=== PATIENT | male | born 1995 | race Caucasian/White ===

== ENCOUNTER 2023-10-21 12:08 | Emergency (ER) | payer BC, SELFPAY ==
--- NOTE | ~2023-10-21 | XR_ITS ---
EXAMINATION: XR lumbar spine 2-3V DATE: 10/21/2023 12:57 INDICATION: Right-sided low back pain TECHNIQUE: Anteroposterior and lateral views of the lumbar spine, and cone-down lateral view of the l umbosacral junction were obtained. COMPARISON: Chest and rib radiographs dated 10/21/2023 FINDINGS: There are 6 nonrib-bearing lumbar segments. 12 paired rib bearing thoracic segments are seen on the c hest and right rib radiographs. Alignment is normal. Vertebral body and disc heights are normal. Sacr al arches are intact. Bilateral sacralized joints are unremarkable. IMPRESSION: 1. Normal variant 6 . Nonrib-bearing lumbar segments. Otherwise unremarkable lumbar spine radiographs with no acute osseous abnormality. Reviewed, dictated and finalized at location A. IMPRESSION: 1. Normal variant 6 . Nonrib-bearing lumbar segments. Otherwise unremarkable fei mbar spine radiographs with no acute osseous abnormality.
--- NOTE | ~2023-10-21 | XR_ITS ---
EXAMINATION: [id number] DATE: 10/21/2023 12:58 INDICATION: Hockey injury with right-sided low back pain wrapping anteriorly to the right chest TECHNIQUE: A frontal inspiratory view of the chest and 3 views of the right ribs were obtained. COMPARISON: None FINDINGS: No rib fractures identified. No pneumothorax. No focal infiltrates, pleural effusion or pulmonary crystal ma. Cardiomediastinal silhouette is normal. IMPRESSION: 1. No rib fracture or acute cardiopulmonary disease. Reviewed, dictated and finalized at location A.
[2023-10-21 12:18] VITALS: BP 154/78; PULSE 74; RESP 18; TEMP 36.9; O2SAT 99
[2023-10-21 12:31] VITALS: BP 154/78; PULSE 74; RESP 18; TEMP 36.9; O2SAT 99
--- NOTE | 2023-10-21 12:37 | ED.BACK ---
HPI - Back Pain/Injury General Chief Complaint: Back Pain/Injury Stated Complaint: Back Pain Time Seen by Provider: 10/21/23 12:26 Source: patient, RN notes reviewed and old records reviewed Mode of arrival: ambulatory Limitations: no limitations History of Present Illness HPI Narrative: 28-year-old male to [facility] for complaint mid right back pain and right rib pain after a hard hit during a hockey game last night. Patient LOC injury. Patient denies shortness of breath, chest pain. Patient has been treating with ibuprofen and currently rating pain 4 out of 10. On exam no bruising noted, no obvious deformity. Patient in mild distress from pain. Respirations even and nonlabored. No saddle anesthesia, no loss or retention of bowel or bladder, patient ambulated with steady gait. Patient denies numbness or tingling to extremities. Related Data Allergies Allergy/AdvReac Type Severity Reaction Status Date / Time No Known Allergies Allergy Verified 10/21/23 12:10 Review of Systems Review of Systems: All systems reviewed & are unremarkable except as noted in HPI and below Constitutional: Constitutional: Reports no additional constitutional complaints Eyes: Eyes: Reports no additional eye complaints ENT: Reports system reviewed and no additional complaints, except as documented Cardiovascular: Cardiovascular: Reports no additional cardiovascular complaints, Denies chest pain and Denies dyspnea Respiratory: Respiratory: Reports no additional respiratory complaints, Denies cough and Denies dyspnea Musculoskeletal: Musculoskeletal: Denies abnormal gait, Reports back pain, Denies deformity, Denies numbness, Denies radiating pain into limb and Denies tingling Neurologic: Reports system reviewed and no additional complaints, except as documented, Denies abnormal gait, Denies headache(s) and Denies weakness Psychiatric: Psychiatric: Reports no additional psychiatric complaints PMFSH Comments At the time of my signature, I reviewed and agree with the nursing past medical, surgical, social, and family history. There is no relevant family history pertinent to the patient complaint. Exam Const: General: cooperative, healthy appearing, no acute distress, well developed, alert, awake, uncomfortable and well nourished Nutritional Appearance: well nourished Orientation/consciousness: patient oriented x3 Limitations: no limitations HENMT: Head: normal to inspection Ears: external ears normal Face/Nose/Sinus: Normal external nose present, Normal nares present, normal facial exam, No erythema and No edema Face and sinus: normal facial exam, no erythema and no edema Mouth: Yes Normal oral and palatal mucosa present Eyes: General: appearance normal, both eyes and all related structures Neck: Neck: normal visual inspection, full ROM and no meningeal signs Lymphatic: no lymphadenopathy noted and no lymphedema noted Chest: Chest palpation & inspection: normal inspection of the chest Resp: Effort & Inspection: normal respiratory effort and able to speak in complete sentences Auscultation: clear to auscultation bilaterally Cardio: Jugular venous distension: no JVD Rate: regular rate Rhythm: regular rhythm Back/Spine/Pelvis: Cervical Spine: cervical ROM normal Thoracic/Lumbar Spine: pain with thoraco-lumbar ROM, paraspinal muscle tenderness on the right, No thoraco-lumbar spasm and No tilt present Other: right lateral ribs; posterior tender to palpation Skin: General skin exam: normal color, no rashes or lesions noted and turgor normal Neuro: General: patient oriented x3, gait normal, moves all extremities and no meningeal signs Speech: normal speech Gait exam (Neuro): Normal gait present Extrem: General: normal to inspection, full ROM and capillary refill normal Psych: Appearance: grossly normal and well kempt Course Course Emergency Course: Some parts of this dictation were generated by voice recognition s
== END 2023-10-21 13:19 | disposition home or self-care (01) ==
PROVIDERS: Emergency Provider Nurse Practitioner Family; PCP Internal Medicine
DX: S20.211A Contusion of right front wall of thorax, initial encounter (principal); S20.221A Contusion of right back wall of thorax, initial encounter; S39.012A Strain of muscle, fascia and tendon of lower back, initial encounter; X58.XXXA Exposure to other specified factors, initial encounter; Y93.22 Activity, ice hockey
CPT/HCPCS: 71101; 72100; 99214; G0463